=== PATIENT | male | born 1985 | race Caucasian/White ===

== ENCOUNTER 2018-07-06 01:32 | Emergency (ER) | payer OTHER ==
--- NOTE | 2018-07-06 02:15 | EDM.PDOC ---
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 Patient states as he had the suspect pinned to the ground he tried bringing the suspects arms around to his back. In this process, the patient sustained a upper traps muscle strain with tendonitis to the left upper extremity/neck area. No previous injury or trauma to the affected area. Patient denies any numbness, tingling, or paresthesia to the left upper extremity. Onset: Today Onset Date: 07/06/18 Duration: Waxing/Waning Location: Reports: Upper Extremity, Left Quality: Reports: Throbbing (intermittent with certain movements) Severity: Mild Improves with: Reports: Rest Worsens with: Reports: Movement Context: Reports: Trauma Associated Symptoms: Reports: No Other Symptoms Review of Systems - Review of Systems Review Of Systems: See Below Constitutional: Denies: Chills, Fever, Weakness Respiratory: Denies: Shortness of Breath, Cough Cardiovascular: Denies: Chest Pain, Palpitations Musculoskeletal: Reports: Neck Pain, Muscle Pain, Other (traps pain left side) Skin: Reports: No Symptoms Neurological: Reports: No Symptoms. Denies: Numbness, Paresthesia, Tingling ED EXAM, GENERAL - Physical Exam Exam: See Below Exam Limited By: No Limitations General Appearance: Alert, No Apparent Distress Neck: Normal Inspection, Supple, Full Range of Motion, Tender Lateral (Left with deep palpation of traps muscle) Respiratory/Chest: No Respiratory Distress, Lungs Clear, Normal Breath Sounds Cardiovascular: Normal Peripheral Pulses, Regular Rate, Rhythm Peripheral Pulses: 2+: Radial (L), Radial (R) Back Exam: Normal Inspection, Full Range of Motion Extremities: Normal Inspection, Normal Range of Motion (pain in left traps muscle radiating to left deltoid; no ROM deficits), Normal Capillary Refill Neurological: Alert, Oriented, No Motor/Sensory Deficits Skin Exam: Warm, Dry, Intact, Normal Color Departure - Departure Time of Disposition: 02:19 Disposition: Home, Self-Care 01 Condition: Good Clinical Impression: Tendonitis, Encounter related to worker's compensation claim Injury of left shoulder Qualifiers: Encounter type: initial encounter Qualified Code(s): S49.92XA - Unspecified injury of left shoulder and upper arm, initial encounter - Discharge Information *PRESCRIPTION DRUG MONITORING PROGRAM REVIEWED*: Not Applicable *COPY OF PRESCRIPTION DRUG MONITORING REPORT IN PATIENT YONG: Not Applicable Instructions: Tendinitis Referrals: PCP,Unobtain [Primary Care Provider] - Forms: ED Department Discharge Additional Instructions: 1. Stay well hydrated and rest 2. Rest, elevate, and ice left shoulder pain area several times a day as able 3. May alternate Tylenol/Advil as needed 4. May use Biofreeze 5. See PCP as symptoms warrant - Problem List Review Problem List Initiated/Reviewed/Updated: Yes - Assessment/Plan Assessment:: Tendonitis Left shoulder injury Encounter for workers comp claim Plan: Discussed physical exam findings with patient. KEEGAN. No xray medically necessary given KATHERINE and assessment findings. Recommend outpatient physical therapy. See PCP as symptoms warrant
== END 2018-07-06 02:28 | disposition home or self-care (01) ==
LOC: VM.ED 01:32
DX: S49.92XA Unspecified injury of left shoulder and upper arm, initial encounter (principal); M77.9 Enthesopathy, unspecified; X58.XXXA Exposure to other specified factors, initial encounter; Y99.0 Civilian activity done for income or pay
CPT/HCPCS: 99283